=== PATIENT | male | born 1960 | race Caucasian/White ===

== ENCOUNTER → 2017-01-02 | Day surgery (SDC) | payer OTHER ==
[~2017-01-02] MED LIST: ALLEGRA PO; AZELASTINE137 MCG/0.; CERTAGEN PO; FLUTICASONE P15.8 ML; LIPITOR20 MG PO; MUCINEX1200 MG/BO PO; MULTIPLE VITAMI1 T11 PO; NASONEX17 GM; NEXIUM 24HR20 MG PO; NEXIUM PO; OFEV PO; [UNRECOGNIZED DRUG - OTHER]
--- NOTE | ~2017-01-02 | OR ---
Unit #: [id number] #: [id number] Patient: FATMATA BAILEY [id number] [address] [place], [place] [address] [id number] O MR#: [id number] NAME: FATMATA BAILEY ROOM: Date of Procedure: 01/02/2017 Admission Date: 01/02/2017 Surgeon: Jamshid Boateng M.D. : 1960 Attending Physician: Jamshid Boateng M.D. Primary Care Physician: Agatha Ayoub M.D. OPERATIVE REPORT PREOPERATIVE DIAGNOSIS Screening colonoscopy. POSTOPERATIVE DIAGNOSIS Screening colonoscopy. PROCEDURE PERFORMED Colonoscopy to cecum. ANESTHESIA Monitored anesthesia care. FINDINGS The patient was found to have a normal colon to cecum. SPECIMENS None. COMPLICATIONS None apparent. CONDITION The patient tolerated the procedure well. INDICATIONS FOR PROCEDURE The patient is a 56-year-old white male, who presents at this time for his initial screening colonoscopy. DESCRIPTION OF PROCEDURE After obtaining informed consent, the patient was brought to the endoscopy suite and after adequate monitored anesthesia care, had the colonoscope placed through the anus and slowly advanced to the level of the cecum without difficulty with the lumen always in view. The cecum was normal as was the ileocecal valve. The ascending colon was normal as was the hepatic flexure, transverse colon, splenic flexure, descending colon, sigmoid colon, and rectum. On retroflexing in the rectum to the anorectal junction, the patient was found to have no significant abnormalities. The scope was removed without difficulty. The patient tolerated the procedure well and went from the endoscopy suite to the recovery area in stable condition. RECOMMENDATIONS Unit #: [id number] #: [id number] Patient: FATMATA BAILEY High-fiber diet, lots of liquids, tucks or wipes p.r.n. Follow up in our office as needed. Dictated by... Parth Vanegas/usmanl TD: 01/02/2017 22:59 JOB #: [id number] [facility] OPERATIVE REPORT Page 1 of 1 X Jamshid Boateng MD X PROCEDURE OPERATIVE NOTE
== END | disposition home or self-care (01) ==
LOC: COPS 05:37
DX: Z12.11 Encounter for screening for malignant neoplasm of colon (principal); J84.10 Pulmonary fibrosis, unspecified; E78.00 Pure hypercholesterolemia, unspecified; Z90.89 Acquired absence of other organs; Z88.8 Allergy status to other drugs, medicaments and biological substances; Z79.899 Other long term (current) drug therapy; Z87.19 Personal history of other diseases of the digestive system
CPT/HCPCS: J2250